=== PATIENT | female | born 1940 | race Hispanic/Latino ===

== ENCOUNTER 2018-12-30 18:06 | Observation (INO) | payer MEDICARE, OTHER ==
[~2018-12-30] VITALS: Ht 162.6 cm; Wt 99.8 kg
[2018-12-30] MEDS ORDERED: VANCOMYCIN 1GM/NS 250 ML 250 ML IV STA (18:07)
--- OUTSIDE RECORDS SUMMARY | 2018-12-30 18:10 | XMS REPORT | CCD ---
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 Depression Active Hypercholesterolemia Active Hypertension Active Sleep apnea Active Medications Medication Instructions Start Date End Date Status pneumococcal 0.5 ml, Route: IM, Drug Form: INJ, 10/07/2010 10/08/2010 Completed 23-valent vaccine ONCALL, Start date: 10/07/10 1:00:00, Duration: 1 doses or times(Same as: Pneumovax 23) Refrigerate pneumococcal 0.5 ml, Route: IM, Drug Form: INJ, 01/26/2010 01/26/2010 Completed 23-valent vaccine ONCE, Start date: 01/26/10 10:30:00, Stop date: 01/26/10 10:30:00(Same as: Pneumovax 23) Refrigerate Immunizations Vaccine Date Status pneumococcal 23-valent vaccine 01/26/2010 Auth (Verified) pneumococcal 23-valent vaccine 10/08/2010 Not Done
--- OUTSIDE RECORDS SUMMARY | 2018-12-30 18:10 | XMS REPORT | CCD ---
Author Author Auto Generated Organization [facility] Outpatient [facility] - [place] Address Unknown Phone Unavailable Care Team Providers Care Hitch Technician Name Role Phone Alexi Pickens Jr [...]
--- OUTSIDE RECORDS SUMMARY | 2018-12-30 18:10 | XMS REPORT | Summary of Care ---
Author Author [facility] Organization [facility] Address Unknown Phone Unavailable Encounter HQ Miriam(MISHA) [id number] Date(s): 12/13/16 - 12/17/16 [facility] [address] [place] [address]- [phone] Discharge Disposition: Home or Self Care Attending Physician: Garcia Howell MD Admitting Physician: Terry Reese DO Vital Signs 1 2 3 Most recent to oldest [Reference Range]: 162.5 cm (12/13/16 8:00 PM) 162.56 cm (12/13/16 9:28 AM) Height 98.5 DegF (12/17/16 12:08 PM) 97.2 DegF (12/17/16 7:33 AM) 97.8 DegF (12/17/16 3:43 AM) Temperature Oral [96.4-99.1 DegF] 127/89 mmHg (12/17/16 12:08 PM) 129/75 mmHg (12/17/16 7:33 AM) 108/64 mmHg (12/17/16 3:43 AM) Blood Pressure [90-140/60-90 mmHg] 18 BRMIN (12/17/16 12:08 PM) 16 BRMIN (12/17/16 8:31 AM) 18 BRMIN (12/17/16 7:33 AM) Respiratory Rate [14-20 BRMIN] 71 bpm (12/17/16 12:08 PM) 72 bpm (12/17/16 7:33 AM) 68 bpm (12/17/16 3:43 AM) Peripheral Pulse Rate [60-100 bpm] 113.6 kg (12/13/16 8:00 PM) 113.636 kg (12/13/16 9:28 AM) Weight 43.02 m2 (12/13/16 8:00 PM) 43 m2 (12/13/16 9:28 AM) Body Mass Index Problem List Condition Effective Dates Status Health Status Informant Anxiety(Confirmed) Active Anxiety(Confirmed) Resolved Asthma(Confirmed) Active CABG - Coronary Active artery bypass graft(Confirmed) Depression(Confirmed Active ) Hypercholesterolemia 12/14/16 Active (Confirmed) Asthma(Confirmed) Resolved Hypertension(Confirm Active ed) Hypertension(Confirm Resolved ed) Sleep Resolved apnea(Confirmed) Sleep Active apnea(Confirmed) Allergies, Adverse Reactions, Alerts Substance Reaction Severity Status NKDA Active Medications Advair Diskus 250 mcg-50 mcg inhalation powder 1 puff, Route: INHALATION, Drug Form: AERO, Dosing Weight 113.6, kg, BID, PRN Wh eezing, Start date: 12/14/16 9:20:00 INTELLIGENCE OFFICER, Duration: 30 day, Stop date: 01/13/17 9:19:00 CDT Start Date: 12/14/16 Stop Date: 12/14/16 Status: Deleted Advair Diskus 250 mcg-50 mcg inhalation powder 1 puff, INHALATION, BID, PRN Wheezing, 0 Refill(s) Start Date: 12/13/16 Status: Ordered albuterol 90 mcg/inh inhalation aerosol 2 puff, Route: INHALATION, Drug Form: AERO/A, Dosing Weight 113.6, kg, Q6H, PRN Wheezing, Start date: 12/14/16 9:20:00 INTELLIGENCE OFFICER, Duration: 30 day, Stop date: 7 9:19:00 CDT Notes: Albuterol 90 microgram/inh 8gm HFAWASTE: Aerosol - Return to Pharmacy [facility] as: Endy Jalloh Start Date: 12/14/16 Stop Date: 12/17/16 Status: Discontinued albuterol 90 mcg/inh inhalation aerosol 2 puff, INHALATION, Q6H, PRN for wheezing, # 9 gm, 0 Refill(s) Start Date: 12/13/16 Status: Ordered aspirin 81 mg, 1 tab, Route: PO, Drug form: CHEWTAB, Daily, Dosing Weight 113.6, kg, Sta rt date: 12/14/16 12:00:00 INTELLIGENCE OFFICER, Duration: 30 day, Stop date: 01/13/17 9:00:00 CD T Notes: Take with food. Start Date: 12/14/16 Stop Date: 12/17/16 Status: Discontinued aspirin 81 mg, PO, Daily, 0 Refill(s) Start Date: 12/13/16 Status: Ordered atropine 0.5 mg, 5 mL, Route: IVP, Drug form: INJ, PRN, Dosing Weight 113.6, kg, PRN Othe r -See Comment, Start date: 12/15/16 13:48:00 INTELLIGENCE OFFICER, Stop date: 01/14/17 14:47:00 CDT, symptomatic bradycardia hr < 40 Start Date: 12/15/16 Stop Date: 12/17/16 Status: Discontinued budesonide-formoterol 160 mcg-4.5 mcg/inh inhalation aerosol with adapter 2 inhalation, Route: INHALATION, Drug Form: AERO/A, BID, Start date: 12/14/16 17 :00:00 INTELLIGENCE OFFICER, Duration: 30 day, Stop date: 01/13/17 9:00:00 CDT Notes: (Same as: Symbicort)WASTE: Aerosol - Return to Pharmacy Start Date: 12/14/16 Stop Date: 12/17/16 Status: Discontinued citalopram 20 mg oral tablet 20 mg=1 tab, PO, Daily, # 30 tab, 0 Refill(s) Start Date: 12/13/16 Status: Ordered Crestor 20 mg, 1 tab, Route: PO, Drug form: TAB, Bedtime, Dosing Weight 113.636, kg, Sta rt date: 12/13/16 21:00:00 INTELLIGENCE OFFICER, Duration: 30 day, Stop date: 01/11/17 21:00:00 C DT Notes: Same as Crestor Start Date: 12/13/16 Stop Date: 12/17/16 Status: Discontinued Crestor 10 mg oral tablet 10 mg=1 tab, PO, Bedtime, # 30 tab, 0 Refill(s) Start Date: 12/13/16 Status: Ordered cyanocobalamin 1,000 microgram, 1 mL, Route: IM, Drug form: INJ, ONCE, Dosing Weight 113.6, kg, Start date: 12/15/16 9:11:00 INTELLIGENCE OFFICER, Stop date: 12/15/16 9:11:00 INTELLIGENCE OFFICER Notes: (Same As: Vitamin B12) Start Date: 12/15/16 Stop Date: 12/15/16 Status: Completed cyanocobalamin 1,000 microgram, 1 mL, Route: IM, Drug form: INJ, ONCE, Dosing Weight 113.6, kg, Start date: 12/14/16 9:19:00 INTELLIGENCE OFFICER, Stop date: 12/14/16 9:19:00 INTELLIGENCE OFFICER Notes: (Same As: Vitamin B12) Start Date: 12/14/16 Stop Date: 12/14/16 Status: Completed cyanocobalamin 250 microgram, 0.5 tab, Route: PO, Drug form: TAB, Daily, Dosing Weight 113.6, k g, Start date: 12/17/16 10:00:00 INTELLIGENCE OFFICER, Duration: 30 day, Stop date: 01/16/17 9:00 :00 CDT Notes: (Same As: Vitamin B12) Start Date: 12/17/16 Stop Date: 12/17/16 Status: Discontinued cyanocobalamin 500 mcg sublingual tablet 500 microgram=1 tab, PO, Daily, # 100 tab, 1 Refill(s) Start Date: 12/17/16 Status: Ordered Diamox 250 mg, 1 tab, Route: PO, Drug form: TAB, Daily, Dosing Weight 113.636, kg, Star t date: 12/13/16 15:00:00 INTELLIGENCE OFFICER, Duration: 30 day, Stop date: 01/12/17 9:00:00 CDT Notes: (Same as: Diamox) Start Date: 12/13/16 Stop Date: 12/16/16 Status: Discontinued influenza virus vaccine, inactivated 0.5 mL, Route: IM, Drug Form: SUSP, Daily, Start date: 12/14/16 9:00:00 INTELLIGENCE OFFICER, Sto p date: 12/14/16 23:00:00 INTELLIGENCE OFFICER Notes: (Same as: Fluzone Quadrivalent, Fluarix Quadrivalent)For 3 years of age a nd older (0.5 mL IM)Shake well before use Start Date: 12/14/16 Stop Date: 12/14/16 Status: Canceled lactulose 10 g/15 mL oral syrup 20 gm=30 mL, PO, BID, # 1,800 mL, 1 Refill(s) Start Date: 12/17/16 Stop Date: 12/18/16 Status: Completed lactulose 10 g/15 mL oral syrup 20 gm, 30 mL, Route: PO, Drug form: SYRP, BID, Dosing Weight 113.636, kg, Start date: 12/13/16 17:00:00 INTELLIGENCE OFFICER, Duration: 30 day, Stop date: 01/12/17 9:00:00 CDT Notes: (Same as:Chronulac) Start Date: 12/13/16 Stop Date: 12/17/16 Status: Discontinued lisinopril 5 mg, 1 tab, Route: PO, Drug form: TAB, Daily, Dosing Weight 113.636, kg, Start date: 12/14/16 9:00:00 INTELLIGENCE OFFICER, Duration: 30 day, Stop date: 01/12/17 9:00:00 CDT Notes: (Same as: Prinivil, Zestril) Start Date: 12/14/16 Stop Date: 12/17/16 Status: Discontinued meloxicam 7.5 mg, 1 tab, Route: PO, Drug form: TAB, Daily, Dosing Weight 113.6, kg, Start date: 12/15/16 9:00:00 INTELLIGENCE OFFICER, Duration: 30 day, Stop date: 01/13/17 9:00:00 CDT Notes: (Same as: Mobic) Start Date: 12/15/16 Stop Date: 12/17/16 Status: Discontinued morphine Sulfate 1 mg, 0.5 mL, Route: IV, Drug form: INJ, ONCE, Dosing Weight 113.6, kg, Start da te: 12/15/16 6:28:00 INTELLIGENCE OFFICER, Stop date: 12/15/16 6:28:00 INTELLIGENCE OFFICER Notes: (Same as:MORPhine Sulfate) Start Date: 12/15/16 Stop Date: 12/15/16 Status: Completed Nitrostat 0.4 mg sublingual tablet 0.4 mg, 1 tab, Route: SL, Drug form: TAB, Q5Min, Dosing Weight 113.6, kg, PRN Ch est Pain, Start date: 12/15/16 13:47:00 INTELLIGENCE OFFICER, Duration: 3 doses or times, Stop da te: Limited # of times Notes: (Same as:Nitroquick, Nitrostat)"Do Not Crush" Sublingual tablet Start Date: 12/15/16 Stop Date: 12/17/16 Status: Discontinued OLANZapine 5 mg, 1 tab, Route: PO, Drug form: TAB, Bedtime, Dosing Weight 113.6, kg, Start date: 12/14/16 21:00:00 INTELLIGENCE OFFICER, Duration: 30 day, Stop date: 01/12/17 21:00:00 CDT Notes: (Same as: ZyPREXA) Start Date: 12/14/16 Stop Date: 12/17/16 Status: Discontinued OLANZapine 5 mg oral tablet 5 mg=1 tab, PO, Bedtime, # 30 tab, 0 Refill(s) Start Date: 12/13/16 Status: Ordered Plavix 75 mg, 1 tab, Route: PO, Drug form: TAB, Daily, Dosing Weight 113.636, kg, Start date: 12/14/16 9:00:00 INTELLIGENCE OFFICER, Duration: 30 day, Stop date: 01/12/17 9:00:00 CDT Notes: (Same As: Plavix) Start Date: 12/14/16 Stop Date: 12/17/16 Status: Discontinued pneumococcal 13-valent vaccine 0.5 mL, Route: IM, Drug Form: INJ, Daily, Start date: 12/14/16 9:00:00 INTELLIGENCE OFFICER, Stop date: 12/14/16 23:00:00 INTELLIGENCE OFFICER Notes: Lightly roll vial (DO NOT SHAKE) before administration. (Same as: Prevna r 13) Start Date: 12/14/16 Stop Date: 12/14/16 Status: Completed riFAXimin 550 mg, 1 tab, Route: PO, Drug form: TAB, Q12H, Dosing Weight 113.6, kg, Start d ate: 12/16/16 21:00:00 INTELLIGENCE OFFICER, Duration: 30 day, Stop date: 01/15/17 9:00:00 CDT Notes: Same as: Xifaxan Start Date: 12/16/16 Stop Date: 12/17/16 Status: Discontinued riFAXimin 550 mg oral tablet 550 mg=1 tab, PO, Q12H, # 20 tab, 0 Refill(s) Start Date: 12/17/16 Status: Ordered Saline Flush 0.9% 10 mL, Route: IVP, Drug Form: INJ, Dosing Weight 113.636, kg, PRN, PRN Line Flus h, Start date: 12/13/16 10:25:00 INTELLIGENCE OFFICER, Duration: 30 day, Stop date: 01/12/17 11:2 4:00 CDT Notes: (Same as: BD Posiflush) Start Date: 12/13/16 Stop Date: 12/17/16 Status: Discontinued Sodium Chloride 0.9% (Bolus) IV 1,000 mL, 1000 ml/hr, Infuse Over: 1 hr, Route: IV, 1,000, Drug form: INJ, ONCE, Priority: STAT, Dosing Weight 113.636 kg, Start date: 12/13/16 10:25:00 INTELLIGENCE OFFICER, Du ration: 1 doses or times, Stop date: 12/13/16 10:25:00 INTELLIGENCE OFFICER Start Date: 12/13/16 Stop Date: 12/13/16 Status: Completed temazepam 15 mg, 1 cap, Route: PO, Drug form: CAP, Bedtime, Dosing Weight 113.636, kg, PRN Sleep, Start date: 12/13/16 23:31:00 INTELLIGENCE OFFICER, Duration: 30 day, Stop date: 01/12/17 23:30:00 CDT Notes: (Same As: Restoril) Start Date: 12/13/16 Stop Date: 12/16/16 Status: Discontinued temazepam 15 mg oral capsule 15 mg=1 cap, PO, Bedtime, PRN Sleep, # 14 tab, 0 Refill(s) Start Date: 12/13/16 Stop Date: 12/17/16 Status: Discontinued tolterodine 4 mg oral capsule, extended release 4 mg=1 cap, PO, Daily, # 30 cap, 1 Refill(s) Start Date: 12/13/16 Stop Date: 12/17/16 Status: Discontinued Zetia 10 mg, 1 tab, Route: PO, Drug form: TAB, Daily, Dosing Weight 113.636, kg, Start date: 12/14/16 9:00:00 INTELLIGENCE OFFICER, Duration: 30 day, Stop date: 01/12/17 9:00:00 CDT Notes: (Same as: Zetia) Start Date: 12/14/16 Stop Date: 12/17/16 Status: Discontinued Results ELECTROLYTES 1 2 3 Most recent to oldest [Reference Range]: 139 mEq/L (12/16/16 10:20 AM) 137 mEq/L (12/15/16 4:05 AM) 139 mEq/L (12/13/16 10:25 AM) Sodium Lvl [135-145 mEq/L] 3.9 mEq/L (12/16/16 10:20 AM) 3.9 mEq/L (12/15/16 4:05 AM) 4.1 mEq/L (12/13/16 10:25 AM) Potassium Lvl [3.5-5.1 mEq/L] 96 mEq/L (12/16/16 10:20 AM) 95 mEq/L (12/15/16 4:05 AM) 92 mEq/L *LOW* (12/13/16 10:25 AM) Chloride Lvl [95-109 mEq/L] 36 mEq/L *HI* (12/16/16 10:20 AM) 38 mEq/L *HI* (12/15/16 4:05 AM) 43 mEq/L 1 *CRIT* (12/13/16 10:25 AM) CO2 [24-32 mEq/L] 10.9 mEq/L (12/16/16 10:20 AM) 7.9 mEq/L *LOW* (12/15/16 4:05 AM) 8.1 mEq/L *LOW* (12/13/16 10:25 AM) AGAP [10.0-20.0 mEq/L] 1Result Comment: Critical Result(s) called to rolando velasquez at 12/13/2016 11:41 by sherry. Read back OK. CHEM PANEL 1 2 3 Most recent to oldest [Reference Range]: 0.46 mg/dL *LOW* (12/16/16 10:20 AM) 0.43 mg/dL *LOW* (12/15/16 4:05 AM) 0.37 mg/dL *LOW* (12/13/16 10:25 AM) Creatinine Lvl [0.50-1.40 mg/dL] 98 mL/min/1.73m2 1 *NA* (12/16/16 10:20 AM) 101 mL/min/1.73m2 2 *NA* (12/15/16 4:05 AM) 106 mL/min/1.73m2 3 *NA* (12/13/16 11:15 AM) eGFR 6 mg/dL *LOW* (12/16/16 10:20 AM) 5 mg/dL *LOW* (12/15/16 4:05 AM) 6 mg/dL *LOW* (12/13/16 10:25 AM) BUN [7-22 mg/dL] 16 (2/20/17 10:25 AM) B/C Ratio [6-25] 116 mg/dL *HI* (12/16/16 10:20 AM) 96 mg/dL (12/15/16 4:05 AM) 94 mg/dL (12/13/16 10:25 AM) Glucose Lvl [70-99 mg/dL] 5.8 g/dL *LOW* (12/13/16 10:25 AM) Total Protein [6.4-8.4 g/dL] 2.1 g/dL *LOW* (12/13/16 10:25 AM) Albumin Lvl [3.5-5.0 g/dL] 3.7 g/dL (12/13/16 10:25 AM) Globulin [2.7-4.2 g/dL] 0.6 *LOW* (12/13/16 10:25 AM) A/G Ratio [0.7-1.6] 8.1 mg/dL *LOW* (12/16/16 10:20 AM) 8.5 mg/dL (12/15/16 4:05 AM) 8.2 mg/dL *LOW* (12/13/16 10:25 AM) Calcium Lvl [8.5-10.5 mg/dL] 1.9 mg/dL (12/13/16 7:53 PM) Magnesium Lvl [1.8-2.4 mg/dL] 10 unit/L (12/13/16 10:25 AM) ALT [0-65 unit/L] 7 unit/L (12/13/16 10:25 AM) AST [0-37 unit/L] 64 unit/L (12/13/16 10:25 AM) Alk Phos [39-136 unit/L] 0.3 mg/dL (12/13/16 10:25 AM) Bili Total [0.2-1.3 mg/dL] 56.0 uMol/L *HI* (12/17/16 6:01 AM) 83.0 uMol/L *HI* (12/16/16 10:20 AM) 87.0 uMol/L *HI* (12/15/16 4:05 AM) Ammonia [<=45.0 uMol/L] 1Result Comment: The eGFR is calculated using the CKD-EPI formula. In most young, healthy individuals the eGFR will be >90 mL/min/1.73m2. The eGFR declines with age. An eGFR of 60-89 may be normal in some populations, particularly the elderly, for whom the CKD-EPI formula has not been extensively validated. Use of the eGFR is not recommended in the following populations: Individuals with unstable creatinine concentrations, including patients and those with serious co-morbid conditions. Patients with extremes in muscle mass or diet. The data above are obtained from the National Kidney Disease Education Program ( NKDEP) which additionally recommends that when the eGFR is used in patients with extremes of body mass index for purposes of drug dosing, the eGFR should be mul tiplied by the estimated BMI. 2Result Comment: The eGFR is calculated using the CKD-EPI formula. In most young, healthy individuals the eGFR will be >90 mL/min/1.73m2. The eGFR declines with age. An eGFR of 60-89 may be normal in some populations, particularly the elderly, for whom the CKD-EPI formula has not been extensively validated. Use of the eGFR is not recommended in the following populations: Individuals with unstable creatinine concentrations, including patients and those with serious co-morbid conditions. Patients with extremes in muscle mass or diet. The data above are obtained from the National Kidney Disease Education Program ( NKDEP) which additionally recommends that when the eGFR is used in patients with extremes of body mass index for purposes of drug dosing, the eGFR should be mul tiplied by the estimated BMI. 3Result Comment: The eGFR is calculated using the CKD-EPI formula. In most young, healthy individuals the eGFR will be >90 mL/min/1.73m2. The eGFR declines with age. An eGFR of 60-89 may be normal in some populations, particularly the elderly, for whom the CKD-EPI formula has not been extensively validated. Use of the eGFR is not recommended in the following populations: Individuals with unstable creatinine concentrations, including patients and those with serious co-morbid conditions. Patients with extremes in muscle mass or diet. The data above are obtained from the National Kidney Disease Education Program ( NKDEP) which additionally recommends that when the eGFR is used in patients with extremes of body mass index for purposes of drug dosing, the eGFR should be mul tiplied by the estimated BMI. CARDIAC ENZYMES 1 2 3 Most recent to oldest [Reference Range]: 26 unit/L (12/13/16 11:15 AM) Total CK [12-191 unit/L] 0.03 ng/mL (12/13/16 11:15 AM) Troponin-I [0.00-0.40 ng/mL] 191 pg/mL *HI* (12/13/16 11:15 AM) BNP [<=100 pg/mL] LIPIDS 1 2 3 Most recent to oldest [Reference Range]: 2.14 *LOW* (12/14/16 3:22 AM) CHD Risk [3.90-5.80] 124 mg/dL (12/14/16 3:22 AM) Chol [<=199 mg/dL] 75 mg/dL (12/14/16 3:22 AM) Trig [<=149 mg/dL] 58 mg/dL *LOW* (12/14/16 3:22 AM) HDL [>=61 mg/dL] 51 mg/dL (12/14/16 3:22 AM) LDL (Calculated) [<=99 mg/dL] 15 *NA* (12/14/16 3:22 AM) VLDL ANEMIA STUDY 1 2 3 Most recent to oldest [Reference Range]: 189 pg/mL *LOW* (12/13/16 7:53 PM) Vitamin B12 Lvl [254-1320 pg/mL] URINE AND STOOL 1 2 3 Most recent to oldest [Reference Range]: Clear (12/13/16 10:20 AM) UA Turbidity [Clear] Ltyellow *NA* (12/13/16 10:20 AM) UA Color 7.0 (12/13/16 10:20 AM) UA pH [5.0-8.0] 1.004 (12/13/16 10:20 AM) UA Spec Grav [<=1.030] Negative mg/dL *NA* (12/13/16 10:20 AM) UA Glucose [Negative mg/dL] Negative (12/13/16 10:20 AM) UA Blood [Negative] Negative mg/dL *NA* (12/13/16 10:20 AM) UA Ketones [Negative mg/dL] Negative mg/dL (12/13/16 10:20 AM) UA Protein [Negative mg/dL] <=1.0 mg/dL *NA* (12/13/16 10:20 AM) UA Urobilinogen [0.1-1.0 mg/dL] Negative *NA* (12/13/16 10:20 AM) UA Bili [Negative] Negative (12/13/16 10:20 AM) UA Leuk Est [Negative] Negative (12/13/16 10:20 AM) UA Nitrite [Negative] <1 /HPF (12/13/16 10:20 AM) UA WBC [0-5 /HPF] Occasional /HPF *NA* (12/13/16 10:20 AM) UA Bacteria [None Seen /HPF] None Seen *NA* (12/13/16 10:20 AM) UA Sq Epi IMMUNOLOGY 1 2 3 Most recent to oldest [Reference Range]: Negative *NA* (12/13/16 7:53 PM) Hep Bs Ag [Negative] Negative *NA* (12/13/16 7:53 PM) Hep B Core IgM [Negative] Negative *NA* (12/13/16 7:53 PM) Hep A IgM [Negative] Negative *NA* (12/13/16 7:53 PM) Hep C Ab HEMATOLOGY 1 2 3 Most recent to oldest [Reference Range]: 6.8 K/CMM (12/13/16 7:53 PM) WBC [3.7-10.4 K/CMM] 4.18 M/CMM *LOW* (12/13/16 7:53 PM) RBC [4.20-5.40 M/CMM] 12.7 g/dL (12/13/16 7:53 PM) Hgb [12.0-16.0 g/dL] 40.0 % (12/13/16 7:53 PM) Hct [36.0-48.0 %] 95.5 fL (12/13/16 7:53 PM) MCV [80.0-98.0 fL] 30.3 pg (12/13/16 7:53 PM) MCH [27.0-31.0 pg] 31.7 g/dL *LOW* (12/13/16 7:53 PM) MCHC [32.0-36.0 g/dL] 14.4 % (12/13/16 7:53 PM) RDW [11.5-14.5 %] 315 K/CMM (12/13/16 7:53 PM) Platelet [133-450 K/CMM] 7.0 fL *LOW* (12/13/16 7:53 PM) MPV [7.4-10.4 fL] 72.7 % (12/13/16 7:53 PM) Segs [45.0-75.0 %] 16.7 % *LOW* (12/13/16 7:53 PM) Lymphocytes [20.0-40.0 %] 8.6 % (12/13/16 7:53 PM) Monocytes [2.0-12.0 %] 1.4 % (12/13/16 7:53 PM) Eosinophils [0.0-4.0 %] 0.6 % (12/13/16 7:53 PM) Basophils [0.0-1.0 %] 5.0 K/CMM (12/13/16 7:53 PM) Segs-Bands # [1.5-8.1 K/CMM] 1.1 K/CMM (12/13/16 7:53 PM) Lymphocytes # [1.0-5.5 K/CMM] 0.6 K/CMM (12/13/16 7:53 PM) Monocytes # [0.0-0.8 K/CMM] 0.1 K/CMM (12/13/16 7:53 PM) Eosinophils # [0.0-0.5 K/CMM] Immunizations Given and Recorded Vaccine Date Status Refusal Reason pneumococcal 23-valent vaccine 01/26/10 Given Not Given Vaccine Date Status Refusal Reason influenza virus vaccine, inactivated 12/14/16 Not Given Patient Refuses pneumococcal 13-valent vaccine 12/14/16 Not Given Patient Refuses Procedures Procedure Date Related Diagnosis Body Site CABG - Coronary artery bypass graft Social History Social History Type Response Smoking Status Never smoker; Previous treatment: None; Ready to change: No; Concerns about tobacco use in household: No; Exposure to Tobacco Smoke None; Cigarette Smoking Last 365 Days No; Reg Smoking Cessation Counseling No Assessment and Plan No data available for this section
--- OUTSIDE RECORDS SUMMARY | 2018-12-30 18:10 | XMS REPORT | CCD ---
Author Author Auto Generated Organization [facility] Out[facility] - [place] Address Unknown Phone Unavailable Care Team Providers Care Forestry Farm Laborer Name Role Phone Alexi Pickens Jr CP [...] date: 10/07/10 1:00:00, Duration: 1 doses or times pneumococcal 0.5 ml, Route: IM, Drug Form: INJ, 01/26/2010 01/26/2010 Completed 23-valent vaccine ONCE, Start date: 01/26/10 10:30:00, Stop date: 01/26/10 10:30:00 Immunizations Vaccine Date Status pneumococcal 23-valent vaccine 01/26/2010 Auth (Verified) pneumococcal 23-valent vaccine 10/08/2010 Not Done
--- OUTSIDE RECORDS SUMMARY | 2018-12-30 18:10 | XMS REPORT | CCD ---
Author Author Auto Generated Organization [facility] Outpatient Imaging - [place] Address Unknown Phone Unavailable Care Team Providers Care Roster Clerk Name Role Phone Nelia NeffAlexi CP Allergies, Adverse Reactions, Alerts Substance Reaction [...]
--- OUTSIDE RECORDS SUMMARY | 2018-12-30 18:10 | XMS REPORT | Continuity of Care Document ---
Author Author [facility] Interface Address Unknown Phone Unavailable Problems Problem Status Onset Date Classification Date Reported Comments Source AMS Active 09/17/2018 [facility] ACUTE HYPERCAPNIC RESPIRATORY FAILURE Active 09/17/2018 [facility] Hypercholesterolemia Active 12/14/2016 Problem 12/20/2016 [facility], [facility] HEPATIC ENCEPHALOPATHY Active 12/13/2016 [facility] HEPATIC ENCEPHALOPATHY Active 12/13/2016 [facility] V76.12 - SCREEN MAMMOGRA Active 09/04/2013 [facility] Anxiety Active Problem 05/23/2013 [facility] Asthma Active Problem 05/23/2013 [facility] CABG - Coronary artery bypass graft Active Problem 05/23/2013 [facility] Depression Active Problem 05/23/2013 [facility] Hypercholesterolemia Active Problem 05/23/2013 [facility] Hypertension Active Problem 05/23/2013 [facility] Sleep apnea Active Problem 05/23/2013 [facility] Anxiety Active Problem 12/20/2016 [facility] Asthma Active Problem 12/20/2016 [facility] CABG - Coronary artery bypass graft Active Problem 12/20/2016 [facility] Depression Active Problem 12/20/2016 [facility] Hypertension Active Problem 12/20/2016 [facility] Sleep apnea Resolved Problem 12/20/2016 [facility] HEPATIC FAILURE, UNSPECIFIED WITHOUT COM Active [facility] ACUTE RESPIRATORY FAILURE WITH HYPERCAPN Active [facility] Medications Medication Details Route Status Patient Instructions Ordering Provider Order Date Source riFAXimin 550 mg oral tablet 550 mg=1 tab, PO, Q12H, # 20 tab, 0 Refill(s) Active 12/17/2016 [facility] Lactulose 667 MG/ML Oral Solution 20 gm=30 mL, PO, BID, # 1,800 mL, 1 Refill(s) No Longer Active 12/17/2016 [facility] cyanocobalamin 500 mcg sublingual tablet 500 microgram=1 tab, PO, Daily, # 100 tab, 1 Refill(s) Active 12/17/2016 [facility] Vitamin B 12 250 microgram, 0.5 tab, Route: PO, Drug form: TAB, Daily, Dosing Weight 113.6, kg, Start date: 12/17/16 10:00:00 DIRECTOR HOUSEKEEPING, Duration: 30 day, Stop date: 01/16/17 9:00:00 CDTNotes: (Same As: Vitamin B12) Inactive 12/17/2016 [facility] rifaximin 550 mg, 1 tab, Route: PO, Drug form: TAB, Q12H, Dosing Weight 113.6, kg, Start date: 12/16/16 21:00:00 DIRECTOR HOUSEKEEPING, Duration: 30 day, Stop date: 01/15/17 9:00:00 CDTNotes: Same as: Xifaxan No Longer Active 12/17/2016 [facility] Atropine 0.5 mg, 5 mL, Route: IVP, Drug form: INJ, PRN, Dosing Weight 113.6, kg, PRN Other -See Comment, Start date: 12/15/16 13:48:00 DIRECTOR HOUSEKEEPING, Stop date: 01/14/17 14:47:00 CDT, symptomatic bradycardia hr No Longer Active 12/15/2016 [facility] Nitroglycerin 0.4 MG Sublingual Tablet [Nitrostat] 0.4 mg, 1 tab, Route: SL, Drug form: TAB, Q5Min, Dosing Weight 113.6, kg, PRN Chest Pain, Start date: 12/15/16 13:47:00 DIRECTOR HOUSEKEEPING, Duration: 3 doses or times, Stop date: Limited # of timesNotes: (Same as:Nitroquick, Nitrostat) "Do Not Crush" Sublingual tablet No Longer Active 12/15/2016 [facility] Vitamin B 12 1,000 microgram, 1 mL, Route: IM, Drug form: INJ, ONCE, Dosing Weight 113.6, kg, Start date: 12/15/16 9:11:00 DIRECTOR HOUSEKEEPING, Stop date: 12/15/16 9:11:00 CSTNotes: (Same As: Vitamin B12) Inactive 12/15/2016 [facility] meloxicam 7.5 mg, 1 tab, Route: PO, Drug form: TAB, Daily, Dosing Weight 113.6, kg, Start date: 12/15/16 9:00:00 DIRECTOR HOUSEKEEPING, Duration: 30 day, Stop date: 01/13/17 9:00:00 CDTNotes: (Same as: Mobic) No Longer Active 12/15/2016 [facility] Morphine 1 mg, 0.5 mL, Route: IV, Drug form: INJ, ONCE, Dosing Weight 113.6, kg, Start date: 12/15/16 6:28:00 DIRECTOR HOUSEKEEPING, Stop date: 12/15/16 6:28:00 CSTNotes: (Same as:MORPhine Sulfate) Inactive 12/15/2016 [facility] olanzapine 5 mg, 1 tab, Route: PO, Drug form: TAB, Bedtime, Dosing Weight 113.6, kg, Start date: 12/14/16 21:00:00 DIRECTOR HOUSEKEEPING, Duration: 30 day, Stop date: 01/12/17 21:00:00 CDTNotes: (Same as: ZyPREXA) No Longer Active 12/15/2016 [facility] budesonide-formoterol 160 mcg-4.5 mcg/inh inhalation aerosol with adapter 2 inhalation, Route: INHALATION, Drug Form: AERO/A, BID, Start date: 12/14/16 17:00:00 DIRECTOR HOUSEKEEPING, Duration: 30 day, Stop date: 01/13/17 9:00:00 CDTNotes: (Same as: Symbicort) WASTE: Aerosol - Return to Pharmacy No Longer Active 12/14/2016 [facility] Aspirin 81 mg, 1 tab, Route: PO, Drug form: CHEWTAB, Daily, Dosing Weight 113.6, kg, Start date: 12/14/16 12:00:00 DIRECTOR HOUSEKEEPING, Duration: 30 day, Stop date: 01/13/17 9:00:00 CDTNotes: Take with food. No Longer Active 12/14/2016 [facility] Advair Diskus 250 mcg-50 mcg inhalation powder 1 puff, Route: INHALATION, Drug Form: AERO, Dosing Weight 113.6, kg, BID, PRN Wheezing, Start date: 12/14/16 9:20:00 DIRECTOR HOUSEKEEPING, Duration: 30 day, Stop date: 01/13/17 9:19:00 CDT Inactive 12/14/2016 [facility] 200 ACTUAT Albuterol 0.09 MG/ACTUAT Metered Dose Inhaler 2 puff, Route: INHALATION, Drug Form: AERO/A, Dosing Weight 113.6, kg, Q6H, PRN Wheezing, Start date: 12/14/16 9:20:00 DIRECTOR HOUSEKEEPING, Duration: 30 day, Stop date: 01/13/17 9:19:00 CDTNotes: Albuterol 90 microgram/inh 8gm HFA WASTE: Aerosol - Return to Pharmacy Same as: Ventolin, Proventil No Longer Active 12/14/2016 [facility] Vitamin B 12 1,000 microgram, 1 mL, Route: IM, Drug form: INJ, ONCE, Dosing Weight 113.6, kg, Start date: 12/14/16 9:19:00 DIRECTOR HOUSEKEEPING, Stop date: 12/14/16 9:19:00 CSTNotes: (Same As: Vitamin B12) Inactive 12/14/2016 [facility] Zetia 10 mg, 1 tab, Route: PO, Drug form: TAB, Daily, Dosing Weight 113.636, kg, Start date: 12/14/16 9:00:00 DIRECTOR HOUSEKEEPING, Duration: 30 day, Stop date: 01/12/17 9:00:00 CDTNotes: (Same as: Zetia) No Longer Active 12/14/2016 [facility] Lisinopril 5 mg, 1 tab, Route: PO, Drug form: TAB, Daily, Dosing Weight 113.636, kg, Start date: 12/14/16 9:00:00 DIRECTOR HOUSEKEEPING, Duration: 30 day, Stop date: 01/12/17 9:00:00 CDTNotes: (Same as: Prinivil, Zestril) No Longer Active 12/14/2016 [facility] Streptococcus pneumoniae serotype 1 capsular antigen diphtheria [id number] protein conjugate vaccine / Streptococcus pneumoniae serotype 14 capsular antigen diphtheria [id number] protein conjugate vaccine / Streptococcus pneumoniae serotype 18C capsular antigen d 0.5 mL, Route: IM, Drug Form: INJ, Daily, Start date: 12/14/16 9:00:00 DIRECTOR HOUSEKEEPING, Stop date: 12/14/16 23:00:00 CSTNotes: Lightly roll vial (DO NOT SHAKE) before administration. (Same as: Prevnar 13) Inactive 12/14/2016 [facility] influenza virus vaccine, inactivated 0.5 mL, Route: IM, Drug Form: SUSP, Daily, Start date: 12/14/16 9:00:00 DIRECTOR HOUSEKEEPING, Stop date: 12/14/16 23:00:00 CSTNotes: (Same as: Fluzone Quadrivalent, Fluarix Quadrivalent) For 3 years of age and older (0.5 mL IM) Shake well before use Inactive 12/14/2016 [facility] Plavix 75 mg, 1 tab, Route: PO, Drug form: TAB, Daily, Dosing Weight 113.636, kg, Start date: 12/14/16 9:00:00 DIRECTOR HOUSEKEEPING, Duration: 30 day, Stop date: 01/12/17 9:00:00 CDTNotes: (Same As: Plavix) No Longer Active 12/14/2016 [facility] Temazepam 15 mg, 1 cap, Route: PO, Drug form: CAP, Bedtime, Dosing Weight 113.636, kg, PRN Sleep, Start date: 12/13/16 23:31:00 DIRECTOR HOUSEKEEPING, Duration: 30 day, Stop date: 01/12/17 23:30:00 CDTNotes: (Same As: Restoril) No Longer Active 12/14/2016 [facility] Advair Diskus 250 mcg-50 mcg inhalation powder 1 puff, INHALATION, BID, PRN Wheezing, 0 Refill(s) Active 12/14/2016 [facility] Rosuvastatin calcium 10 MG Oral Tablet [Crestor] 10 mg=1 tab, PO, Bedtime, # 30 tab, 0 Refill(s) Active 12/14/2016 [facility] 200 ACTUAT Albuterol 0.09 MG/ACTUAT Metered Dose Inhaler 2 puff, INHALATION, Q6H, PRN for wheezing, # 9 gm, 0 Refill(s) Active 12/14/2016 [facility] Aspirin 81 mg, PO, Daily, 0 Refill(s) Active 12/14/2016 [facility] temazepam 15 mg oral capsule 15 mg=1 cap, PO, Bedtime, PRN Sleep, # 14 tab, 0 Refill(s) No Longer Active 12/14/2016 [facility] OLANZapine 5 mg oral tablet 5 mg=1 tab, PO, Bedtime, # 30 tab, 0 Refill(s) Active 12/14/2016 [facility] citalopram 20 mg oral tablet 20 mg=1 tab, PO, Daily, # 30 tab, 0 Refill(s) Active 12/14/2016 [facility] tolterodine 4 mg oral capsule, extended release 4 mg=1 cap, PO, Daily, # 30 cap, 1 Refill(s) No Longer Active 12/14/2016 [facility] Crestor 20 mg, 1 tab, Route: PO, Drug form: TAB, Bedtime, Dosing Weight 113.636, kg, Start date: 12/13/16 21:00:00 DIRECTOR HOUSEKEEPING, Duration: 30 day, Stop date: 01/11/17 21:00:00 CDTNotes: Same as Crestor No Longer Active 12/14/2016 [facility] Lactulose 667 MG/ML Oral Solution 20 gm, 30 mL, Route: PO, Drug form: SYRP, BID, Dosing Weight 113.636, kg, Start date: 12/13/16 17:00:00 DIRECTOR HOUSEKEEPING, Duration: 30 day, Stop date: 01/12/17 9:00:00 CDTNotes: (Same as:Chronulac) No Longer Active 12/13/2016 [facility] Acetazolamide 250 mg, 1 tab, Route: PO, Drug form: TAB, Daily, Dosing Weight 113.636, kg, Start date: 12/13/16 15:00:00 DIRECTOR HOUSEKEEPING, Duration: 30 day, Stop date: 01/12/17 9:00:00 CDTNotes: (Same as: Diamox) No Longer Active 12/13/2016 [facility] Saline Flush 0.9% 10 mL, Route: IVP, Drug Form: INJ, Dosing Weight 113.636, kg, PRN, PRN Line Flush, Start date: 12/13/16 10:25:00 DIRECTOR HOUSEKEEPING, Duration: 30 day, Stop date: 01/12/17 11:24:00 CDTNotes: (Same as: BD Posiflush) No Longer Active 12/13/2016 [facility] Sodium Chloride 0.154 MEQ/ML Injectable Solution 1,000 mL, 1000 ml/hr, Infuse Over: 1 hr, Route: IV, 1,000, Drug form: INJ, ONCE, Priority: STAT, Dosing Weight 113.636 kg, Start date: 12/13/16 10:25:00 DIRECTOR HOUSEKEEPING, Duration: 1 doses or times, Stop date: 12/13/16 10:25:00 DIRECTOR HOUSEKEEPING Inactive 12/13/2016 [facility] pneumococcal 23-valent vaccine 0.5 ml, Route: IM, Drug Form: INJ, ONCALL, Start date: 10/07/10 1:00:00, Duration: 1 doses or times(Same as: Pneumovax 23) Refrigerate No Longer Active SYSTEM 10/07/2010 [facility] pneumococcal 23-valent vaccine 0.5 ml, Route: IM, Drug Form: INJ, ONCE, Start date: 01/26/10 10:30:00, Stop date: 01/26/10 10:30:00(Same as: Pneumovax 23) Refrigerate Inactive SYSTEM 01/26/2010 [facility] Allergies, Adverse Reactions, Alerts Substance Category Reaction Severity Reaction type Status Date Reported Comments Source Immunizations Immunization Date Given Site Status Last Updated Comments Source pneumococcal 13-valent vaccine 12/14/2016 Not Given [facility] influenza virus vaccine, inactivated 12/14/2016 Not Given [facility] pneumococcal 23-valent vaccine 10/08/2010 Not Given [facility] pneumococcal 23-valent vaccine 01/26/2010 fabian Johnson [facility] pneumococcal 23-valent vaccine 01/26/2010 Right deltoid completed Alex [facility] Results Order Name Results Value Reference Range Date Interpretation Comments Source Chest wo contrast CT Chest wo contrast CT EXAM: CT chest HISTORY: Hypoxemia COMPARISON: Chest radiograph September 24, 2018 TECHNIQUE: Axial images of the chest with sagittal and coronal reformats. No contrast. DLP: 302 CT imaging performed at this location utilizes radiation dose optimization techniques which include one or more of the following: -Automated exposure control -Adjustment of the mA and/or kV according to patient size -Use of iterative reconstruction technique FINDINGS: LUNGS: Respiratory motion limits evaluation. The lungs are hyperinflated. Minimal centrilobular groundglass opacities right lower lobe. Calcified granuloma left upper lobe. Focal consolidation left lower lobe. Dependent atelectasis in the lung bases. MEDIASTINUM: Few small lymph nodes are nonspecific. 1.5 cm nodule left thyroid lobe. Coronary artery bypass. PLEURA: No effusion. BONES: Scoliosis. IMPRESSION: 1. Minimal airspace disease right lower lobe may reflect a pneumonitis. Dependent atelectasis in the lung bases. Consolidation left lower lobe may reflect atelectasis or pneumonia. 2. COPD. 3. 1.5 cm nodule left thyroid lobe. Thyroid ultrasound can further evaluate. SL: [id number] 09/24/2018 - - Read by: Caleb Rangel MD Dictated Date/time: 09/25/18 12:04 Electronically Signed by: Caleb Rangel MD 09/25/18 12:16 FINAL REPORT [facility] Chest 1view DX Chest 1view DX Study: Chest 1view DX Clinical Indication: - Acute resp failure Comparison: Chest x-ray from 09/17/2018 FINDINGS: Median sternotomy wires are noted. Cardiac silhouette is mildly prominent. Mild bibasilar atelectasis is seen. Calcified granuloma in the left upper lobe is stable. There is no pleural effusion or pneumothorax. Osseous structures are stable. IMPRESSION: Mild bibasilar atelectasis. SL: [id number] 09/24/2018 - - Read by: Joel Mijares MD Dictated Date/time: 09/24/18 12:18 Electronically Signed by: Joel Mijares MD 09/24/18 12:19 FINAL REPORT [facility] Chest 1view DX Chest 1view DX Patient Name: IRVIN QUINN : 1940; Age: 78 years y/o Female MR: [id number] Study: Chest 1view DX 09/17/2018 10:45 AM DIRECTOR HOUSEKEEPING Ordering Physician: Cayla Tse MD Comparison: Chest radiograph 12/13/2016 Clinical Indication: Altered mental status Findings: The patient is rotated to the left. Hazy airspace opacities throughout the lungs, right greater than left. Small bilateral pleural effusions. No pneumothorax. The cardiac silhouette is enlarged. Atherosclerotic calcifications of the aortic arch. Stable sternotomy wires. No acute osseous abnormalities. IMPRESSION: Mild pulmonary edema with small bilateral pleural effusions. SL: [id number] 09/17/2018 - - Read by: Charli Simms Dictated Date/time: 09/17/18 12:07 Electronically Signed by: Charli Simms 09/17/18 12:09 FINAL REPORT [facility] Brain wo contrast CT Brain wo contrast CT Patient Name: IRVIN QUINN : 1940; Age: 78 years Female MR: [id number] Study: Brain wo contrast CT 09/17/2018 10:45 AM DIRECTOR HOUSEKEEPING Clinical Indication: - AMS. Arrived by ems from home with confusion for 2 days. pt with hx of copd on home O2 and was without oxygen for 2 days. arousable to verbal, disoriented to time. COMPARISON: December 13, 2016 TECHNIQUE: CT images were obtained from the foramen magnum to the vertex without the use of intravenous contrast on a multidetector CT. Coronal and sagittal reconstructions were obtained. Motion artifact limits detail. CT imaging performed at this location utilizes radiation dose optimization techniques which include one or more of the following: -Automated exposure control -Adjustment of the mA and/or kV according to patient size -Use of iterative reconstruction technique CT Radiation Dose DLP 1657 mGy-cm FINDINGS: BRAIN PARENCHYMA: There is generalized brain parenchymal atrophy related to the patient's age. Nonspecific periventricular white matter disease changes are noted. Atherosclerotic calcifications are present within the carotid siphons and distal vertebral arteries. There are no focal mass lesions on this noncontrast head CT. There is no mass effect, midline shift or edema. There are no intra-axial or extra-axial fluid collections. There is no intraventricular or intraparenchymal hemorrhage. There is no noncontrast CT evidence of a subacute stroke. Chronic right thalamic lacunar infarction. The pineal, sellar, brainstem, cerebellum and skull base regions appear normal. VENTRICLES: The lateral ventricles, third and fourth ventricles appear normal. The basilar cisterns are normal. ORBITS, MASTOIDS AND PARANASAL SINUSES: The visualized orbits are normal. The visualized paranasal sinuses are normal. The mastoid air cells are clear. SKULL: There are no calvarial abnormalities seen. If there is further concern for intracranial pathology or acute stroke, MRI of the brain may be performed for complete assessment. IMPRESSION: Chronic age-related and small vessel ischemic changes without mass, hemorrhage or subacute stroke. SL: [id number] 09/17/2018 - - Read by: Javan Denny MD Dictated Date/time: 09/17/18 12:15 Electronically Signed by: Javan Denny MD 09/17/18 12:20 FINAL REPORT [facility] CHEM PANEL Ammonia 56.0 umol/L <=45.0 uMol/L 12/17/2016 [facility] CHEM PANEL Ammonia 83.0 umol/L <=45.0 uMol/L 12/16/2016 [facility] CHEM PANEL eGFR 98 mL/min/1.73m2 12/16/2016 Result Comment: The eGFR is calculated using the [...] from the National Kidney Disease Education Program (NKDEP) which additionally recommends that when the eGFR is used in patients with extremes of body mass index for purposes of drug dosing, the eGFR should be multiplied by the estimated BMI. [facility] CHEM PANEL AGAP 10.9 meq/L 10.0 - 20.0 12/16/2016 [facility] CHEM PANEL Potassium Lvl 3.9 meq/L 3.5 - 5.1 12/16/2016 [facility] CHEM PANEL CO2 36 meq/L 24 - 32 12/16/2016 [facility] CHEM PANEL Sodium Lvl 139 meq/L 135 - 145 12/16/2016 [facility] CHEM PANEL Chloride Lvl 96 meq/L 95 - 109 12/16/2016 [facility] CHEM PANEL Calcium Lvl 8.1 mg/dL 8.5 - 10.5 12/16/2016 [facility] CHEM PANEL Glucose Lvl 116 mg/dL 70 - 99 12/16/2016 [facility] CHEM [facility] BUN 6 mg/dL 7 - 22 12/16/2016 [facility] CHEM [facility] Creatinine Lvl 0.46 mg/dL 0.50 - 1.40 12/16/2016 [facility] Abdomen complete US Abdomen complete US Abdomen complete US TECHNIQUE: Grayscale and color Doppler images of the abdomen were performed with a curvilinear transducer. Static images are submitted for review. CLINICAL HX: Abnormal Lab tests- LFT; COMPARISON: None FINDINGS: LIVER: There is diffuse heterogeneous increase in echogenicity of the liver suggestive of fatty infiltration and/or nonspecific hepatocellular disease. No focal hepatic lesion is visualized. GALL BLADDER AND BILE DUCTS: There is nonvisualization of the gallbladder suggesting previous cholecystectomy. CBD measures 4 mm. PANCREAS: Pancreas is largely obscured by bowel gas. Visualized portion of the pancreas is unremarkable. SPLEEN: Spleen is normal in size. KIDNEYS: The kidneys are comparable in size and reveal no gross masses or any evidence for hydronephrosis. Maximal sagittal diameter of the right kidney is 9.6 cm and the left kidney is and 10.6 cm. VASCULAR: Midline structures are largely obscured due to bowel gas. Visualized portion of the aorta and IVC are unremarkable. ASCITES: No free fluid is present in the upper abdomen. No significant effusion is noted on either side. IMPRESSION: Limited evaluation due to patient's body habitus and bowel gas. Nonvisualization of gallbladder suggesting previous cholecystectomy. Correlation with patient's surgical history is recommended. There is diffuse heterogeneous increase in echogenicity of the liver suggestive of fatty infiltration and/or nonspecific hepatocellular disease. No other significant sonographic abnormality is noted in the abdomen. SL: [id number] 12/16/2016 - - Read by: Pradip Geiger MD Dictated Date/time: 12/16/16 16:35 Electronically Signed by: Pradip Geiger MD 12/16/16 16:40 FINAL REPORT [facility] CHEM PANEL Ammonia 87.0 umol/L <=45.0 uMol/L 12/15/2016 [facility] ELECTROLYTES CO2 38 meq/L 24 - 32 12/15/2016 [facility] ELECTROLYTES eGFR 101 mL/min/1.73m2 12/15/2016 Result Comment: The eGFR is calculated using the [...] from the National Kidney Disease Education Program (NKDEP) which additionally recommends that when the eGFR is used in patients with extremes of body mass index for purposes of drug dosing, the eGFR should be multiplied by the estimated BMI. [facility] ELECTROLYTES Calcium Lvl 8.5 mg/dL 8.5 - 10.5 12/15/2016 [facility] ELECTROLYTES AGAP 7.9 meq/L 10.0 - 20.0 12/15/2016 [facility] ELECTROLYTES BUN 5 mg/dL 7 - 12/15/2016 [facility] ELECTROLYTES Potassium Lvl 3.9 meq/L 3.5 - 5.1 12/15/2016 [facility] ELECTROLYTES Chloride Lvl 95 meq/L 95 - 109 12/15/2016 [facility] ELECTROLYTES Glucose Lvl 96 mg/dL 70 - 99 12/15/2016 [facility] ELECTROLYTES Creatinine Lvl 0.43 mg/dL 0.50 - 1.40 12/15/2016 [facility] ELECTROLYTES Sodium Lvl 137 meq/L 135 - 145 12/15/2016 [facility] LIPIDS VLDL 15 12/14/2016 [facility] LIPIDS Trig 75 mg/dL <=149 mg/dL 12/14/2016 [facility] LIPIDS Chol 124 mg/dL <=199 mg/dL 12/14/2016 [facility] LIPIDS HDL 58 mg/dL >=61 mg/dL 12/14/2016 [facility] LIPIDS LDL (Calculated) 51 mg/dL <=99 mg/dL 12/14/2016 [facility] LIPIDS CHD Risk 2.14 3.90 - 5.80 12/14/2016 [facility] ANEMIA STUDY Vitamin B12 Lvl 189 pg/mL 254 - 1320 12/14/2016 [facility] CHEM PANEL Magnesium Lvl 1.9 mg/dL 1.8 - 2.4 12/14/2016 [facility] HEMATOLOGY MPV 7.0 fL 7.4 - 10.4 12/14/2016 [facility] HEMATOLOGY Platelet 315 K/CMM 133 - 450 12/14/2016 [facility] MCHC 31.7 g/dL 32.0 - 36.0 12/14/2016 [facility] HEMATOLOGY Hct 40.0 % 36.0 - 48.0 12/14/2016 [facility] HEMATOLOGY RDW 14.4 % 11.5 - 14.5 12/14/2016 [facility] HEMATOLOGY RBC 4.18 M/CMM 4.20 - 5.40 12/14/2016 [facility] MCH 30.3 pg 27.0 - 31.0 12/14/2016 [facility] HEMATOLOGY MCV 95.5 fL 80.0 - 98.0 12/14/2016 [facility] HEMATOLOGY Hgb 12.7 g/dL 12.0 - 16.0 12/14/2016 [facility] HEMATOLOGY WBC 6.8 K/CMM 3.7 - 10.4 12/14/2016 [facility] HEMATOLOGY Eosinophils # 0.1 K/CMM 0.0 - 0.5 12/14/2016 [facility] HEMATOLOGY Monocytes # 0.6 K/CMM 0.0 - 0.8 12/14/2016 [facility] HEMATOLOGY Lymphocytes # 1.1 K/CMM 1.0 - 5.5 12/14/2016 [facility] HEMATOLOGY Basophils 0.6 % 0.0 - 1.0 12/14/2016 [facility] HEMATOLOGY Eosinophils 1.4 % 0.0 - 4.0 12/14/2016 [facility] HEMATOLOGY Monocytes 8.6 % 2.0 - 12.0 12/14/2016 [facility] HEMATOLOGY Lymphocytes 16.7 % 20.0 - 40.0 12/14/2016 [facility] HEMATOLOGY Segs 72.7 % 45.0 - 75.0 12/14/2016 [facility] HEMATOLOGY Segs-Bands # 5.0 K/CMM 1.5 - 8.1 12/14/2016 [facility] Hep A IgM Negative *NA* (12/13/16 7:53 PM) Negative 12/14/2016 [facility] Hep C Ab Negative *NA* (12/13/16 7:53 PM) 12/14/2016 [facility] Hep Bs Ag Negative *NA* (12/13/16 7:53 PM) Negative 12/14/2016 [facility] Hep B Core IgM Negative *NA* (12/13/16 7:53 PM) Negative 12/14/2016 [facility] CARDIAC ENZYMES BNP 191 pg/mL <=100 pg/mL 12/13/2016 [facility] CARDIAC ENZYMES Total CK 26 unit/L 12 - 191 12/13/2016 [facility] CARDIAC ENZYMES Troponin-I 0.03 ng/mL 0.00 - 0.40 12/13/2016 [facility] CHEM PANEL eGFR 106 mL/min/1.73m2 12/13/2016 Result Comment: The eGFR is calculated using the [...] from the National Kidney Disease Education Program (NKDEP) which additionally recommends that when the eGFR is used in patients with extremes of body mass index for purposes of drug dosing, the eGFR should be multiplied by the estimated BMI. [facility] CHEM PANEL Bili Total 0.3 mg/dL 0.2 - 1.3 12/13/2016 [facility] CHEM PANEL Alk Phos 64 unit/L 39 - 136 12/13/2016 [facility] CHEM PANEL AST 7 unit/L 0 - 37 12/13/2016 [facility] CHEM PANEL Creatinine Lvl 0.37 mg/dL 0.50 - 1.40 12/13/2016 [facility] CHEM PANEL BUN 6 mg/dL 7 - 22 12/13/2016 [facility]M PANEL Glucose Lvl 94 mg/dL 70 - 99 12/13/2016 [facility] PAN[facility] Albumin Lvl 2.1 g/dL 3.5 - 5.0 12/13/2016 [facility] Globulin 3.7 g/dL 2.7 - 4.2 12/13/2016 [facility] A/G Ratio 0.6 0.7 - 1.6 12/13/2016 [facility] CHEM PANEL ALT 10 unit/L 0 - 65 12/13/2016 [facility] CHEM PANEL Total Protein 5.8 g/dL 6.4 - 8.4 12/13/2016 [facility] CHEM PANEL CO2 43 meq/L 24 - 32 12/13/2016 Result Comment: Critical Result(s) called to rolando velasquez at 12/13/2016 11:41 by sherry. Read back OK. [facility] CHEM PANEL AGAP 8.1 meq/L 10.0 - 20.0 12/13/2016 [facility] PANEL Calcium Lvl 8.2 mg/dL 8.5 - 10.5 12/13/2016 [facility] CHEM PANEL B/C Ratio 16 6 - 25 12/13/2016 [facility] CHEM PANEL Chloride Lvl 92 meq/L 95 - 109 12/13/2016 [facility] CHEM PANEL Potassium Lvl 4.1 meq/L 3.5 - 5.1 12/13/2016 [facility]M PANEL Sodium Lvl 139 meq/L 135 - 145 12/13/2016 [facility] URINE AND STOOL UA Color Ltyellow 12/13/2016 [facility] URINE AND STOOL UA Urobilinogen <=1.0 mg/dL 0.1 - 1.0 12/13/2016 [facility] URINE AND STOOL UA Sq Epi None Seen 12/13/2016 [facility] URINE AND STOOL UA Bacteria Occasional /HPF None Seen /HPF 12/13/2016 [facility] URINE AND STOOL UA WBC null 0 - 5 12/13/2016 [facility] URINE AND STOOL UA pH 7.0 5.0 - 8.0 12/13/2016 [facility] URINE AND STOOL UA Spec Grav 1.004 <=1.030 12/13/2016 [facility] URINE AND STOOL UA Turbidity Clear (12/13/16 10:20 AM) Clear 12/13/2016 [facility] URINE AND STOOL UA Glucose Negative mg/dL Negative mg/dL 12/13/2016 [facility] URINE AND STOOL UA Protein Negative mg/dL Negative mg/dL 12/13/2016 [facility] URINE AND STOOL UA Bili Negative *NA* (12/13/16 10:20 AM) Negative 12/13/2016 [facility] URINE AND STOOL UA Ketones Negative mg/dL Negative mg/dL 12/13/2016 [facility] URINE AND STOOL UA Leuk Est Negative (12/13/16 10:20 AM) Negative 12/13/2016 [facility] URINE AND STOOL UA Nitrite Negative (12/13/16 10:20 AM) Negative 12/13/2016 [facility] URINE AND STOOL UA Blood Negative (12/13/16 10:20 AM) Negative 12/13/2016 [facility] Carotid artery Doppler bilat US Carotid artery Doppler bilat US Carotid artery Doppler bilat US CLINICAL HISTORY: Transient cerebral ischem. COMPARISON: 12/13/2016 TECHNIQUE: Elam scale, color Doppler and spectral Doppler of the cervical carotid arteries was performed. Static images are submitted for review. FINDINGS: RIGHT: There is no significant intimal thickening or plaque visualized in right CCA. Visualized portion of right ECA is patent. Minimal scattered plaque is noted at the right carotid bulb. Visualized portion of the right ICA is patent without significant plaque. Right ICA PSV 141 cm/sec. Right CCA PSV 125 cm/sec. Right ICA/CCA Ratio 1.1 LEFT: There is no significant intimal thickening or plaque visualized in left CCA. Visualized portion of left ECA is patent. No significant plaque is visualized in the left carotid bulb. Visualized portion of the left ICA is patent without significant plaque. Left ICA PSV 129 cm/sec. Left CCA PSV 130 cm/sec. Left ICA/CCA Ratio 1.0 Antegrade flow is noted in both vertebral arteries. IMPRESSION: No sonographic evidence for hemodynamically significant stenosis. CONSENSUS PANEL Doppler US criteria for diagnosis of ICA stenosis: Stenosis (%) ICA PSV (cm/sec) ICA EDV(cm/sec) ICA/CCA ratio <50 % <125 <40 <2.0 50-69 % 125-230 40-100 2.0-4.0 >70% but less than >230 >100 >4.0 near occlusion NOTE: Any reported ICA stenoses indirectly reference the distal internal carotid diameter as the denominator for stenosis measurement utilizing Consensus Panel Criteria. SL: [id number] 12/13/2016 - - Read by: Pradip Geiger MD Dictated Date/time: 12/13/16 16:45 Electronically Signed by: Pradip Geiger MD 12/13/16 16:47 FINAL REPORT [facility] Brain wo contrast CT Brain wo contrast CT Addendum: I have reviewed this examination and concur with the interpretation. Brain wo contrast CT CLINICAL HISTORY: Altered level of consciousness/ pt from snf, was not acting herself this am confused/now feels better; CT DLP dose 859.11 mGycm COMPARISON: 10/06/2010 TECHNIQUE: Contiguous transaxial images of the brain were performed without administration of IV contrast. Reformations were performed in sagittal and coronal projections. FINDINGS: BRAIN PARENCHYMA: There is no evidence for space-occupying lesions, mass effect or vasogenic edema. No evidence for parenchymal bleed, extra-axial collections or midline shift. Decreased attenuation in the periventricular white matter is likely related to chronic ischemic change from small vessel disease. No acute infarct is noted. Intracranial vascular calcifications are noted. VENTRICLES: There is dilation of ventricles and subarachnoid spaces but not out of proportion to the underlying cerebral atrophy. BRAINSTEM, SELLA AND ORBITS: No evidence for Chiari malformation. No space- occupying lesion is visualized in the sella. Visualized portion of the orbits are unremarkable. CALVARIUM AND SKULL BASE: No displaced bony fractures or other significant bony abnormality is visualized. MASTOIDS AND PARANASAL SINUSES: The visualized paranasal sinuses are clear. Mastoid air cells are clear bilaterally. IMPRESSION: No acute brain abnormality is noted. Further evaluation may be obtained with MRI of brain as clinically indicated. SL: [id number] 12/13/2016 - - Read by: Kim Madden MD Dictated Date/time: 12/13/16 12:20 Electronically Signed by: Kim Madden MD 12/13/16 12:21 FINAL REPORT - - Read by: Pradip Geiger MD Dictated Date/time: 12/13/16 12:13 Electronically Signed by: Pradip Geiger MD 12/13/16 12:17 FINAL REPORT [facility] Chest 1view DX Chest 1view DX Study: Chest 1view DX Clinical Indication: Dizziness Comparison: Chest x-ray from 09/27/2013 FINDINGS: Median sternotomy wires are again noted. Cardiac silhouette is enlarged. Central vascular congestion with mild pulmonary edema and small pleural effusions are noted. There is no pneumothorax. The osseous structures are unremarkable. IMPRESSION: Congestive heart failure SL: [id number] 12/13/2016 - - Read by: Joel Mijares MD Dictated Date/time: 12/13/16 10:55 Electronically Signed by: Joel Mijares MD 12/13/16 10:55 FINAL REPORT [facility] Digital Mammo Screening Horacio MA Digital Mammo Screening Horacio MA - DIGITAL MAMMO SCREENING HORACIO MA BILATERAL DIGITAL SCREENING MAMMOGRAM WITH CAD: 11/03/2013 CLINICAL: Screening. Current study was evaluated with a Computer Aided Detection (CAD) system. Comparison is made to exams dated: 08/30/2008 mammogram, 09/15/2009 mammogram, 09/15/2010 mammogram, 09/22/2011 mammogram and 09/22/2012 mammogram. There are scattered fibroglandular densities in both breasts. No significant masses, calcifications, or other findings are seen in either breast. There has been no significant interval change. IMPRESSION: NEGATIVE There is no mammographic evidence of malignancy. A screening mammogram in one year is recommended. Dr. Rimma Dodson D.O. ht/penrad:11/12/2013 13:24:38 Inkjet Operator: Silvia CADENA(R)(M)[facility] This exam was dictated and interpreted by [id number] for GAMAL Carbone Fabiano. letter sent: Normal exam Mammogram BI-RADS: 1 Negative 11/03/2013 - - Read by: Rimma Dodson Dictated Date/time: 11/12/13 13:24 Electronically Signed by: Rimma Dodson DO 11/12/13 13:24 FINAL REPORT TAYOIsh Vázqueza Chest 2 views Chest 2 views EXAMINATION: Chest x-ray 2 views COMPARISON: May 21, 2013 COMMENTS: Sternotomy changes are again noted. The heart and pulmonary vasculature are within normal limits. Left upper lung punctate calcified granuloma is again noted. No focal consolidation or significant pleural fluid collection is appreciated. No suspicious osseous pathology. IMPRESSION: NO ACUTE CARDIOPULMONARY ABNORMALITY. 09/27/2013 - - Read by: London Johnson Dictated Date/time: 09/27/13 14:38 Electronically Signed by: London Johnson MD 09/27/13 14:46 FINAL REPORT TAYOIsh SuarezLynn Chest 2 views Chest 2 views CHEST PA AND LATERAL Clinical history: COPD. Comparison: 10/06/2010 Findings: Status post medial sternotomy The lungs are expanded and no infiltrate, mass or pleural effusion seen. Subsegmental atelectasis in both bases and at the lingula. The heart is borderline enlarged. IMPRESSION: There is no evidence for active pulmonary disease. Borderline cardiomegaly, stable. 05/21/2013 - - Read by: Wero Mckinnon Dictated Date/time: 05/21/13 12:07 Electronically Signed by: Wero Mckinnon MD 05/21/13 12:12 FINAL REPORT JUDY Suarezadena Bone Density-Dual Energy Absorptionmetry Bone Density-Dual Energy Absorptionmetry - Bone Density-Dual Energy Absorptionmetry BONE DENSITY EVALUATION: 04/09/2013 CLINICAL DATA: Post menopausal. RISK FACTORS: . FINDINGS: Bone density evaluation was performed 04/09/2013 on the AP L1-L4 region of spine using Lunar Dual Energy X-Ray Absorptiometry. The BMD average for the exam is 0.882 g/cm2. The T-score is -2.50 and the Z-score is -1.70. These values indicate 82.0% for age-matched controls. This matches the World Health Organization's criteria for osteoporosis and places the patient at a high risk for fracture. An additional bone density evaluation was performed 04/09/2013 on the right femur neck using Lunar Dual Energy X-Ray Absorptiometry. The BMD average for the exam is 0.733 g/cm2. The T-score is -2.20 and the Z-score is -1.00. These values indicate 84.0% for age-matched controls. This matches the World Health Organization's criteria for osteopenia and places the patient at a medium risk for fracture. An additional bone density evaluation was performed 04/09/2013 on the right hip using Lunar Dual Energy X-Ray Absorptiometry. The BMD average for the exam is 0.778 g/cm2. The T-score is -1.80 and the Z-score is -0.90. These values indicate 87.0% for age-matched controls. This matches the World Health Organization's criteria for osteopenia and places the patient at a medium risk for fracture. An additional bone density evaluation was performed 04/09/2013 on the left femur neck using Lunar Dual Energy X-Ray Absorptiometry. The BMD average for the exam is 0.607 g/cm2. The T-score is -3.10 and the Z-score is -1.90. These values indicate 69.0% for age-matched controls. This matches the World Health Organization's criteria for osteoporosis and places the patient at a high risk for fracture. An additional bone density evaluation was performed 04/09/2013 on the left hip using Lunar Dual Energy X-Ray Absorptiometry. The BMD average for the exam is 0.728 g/cm2. The T-score is -2.20 and the Z-score is -1.30. These values indicate 81.0% for age-matched controls. This matches the World Health Organization's criteria for osteopenia and places the patient at a medium risk for fracture. IMPRESSION: OSTEOPOROSIS Patient is at high risk for fracture. Aliyah estrada/melissa:04/09/2013 17:13:39 Inkjet Operator: Trey rCockett, [facility] 04/09/2013 - - Read by: Aliyah Wang [facility] Date/time: 04/09/13 17:13 Electronically Signed by: Aliyah Wang MD 04/09/13 17:13 FINAL REPORT GAMAL Sauer Pelvis with Pelvis Transvaginal US Pelvis with Pelvis Transvaginal US EXAM: Pelvic/transvaginal ultrasound HISTORY: 627 COMPARISON: None. FINDINGS: Real-time sonographic evaluation of the pelvis was performed. Transabdominal and transvaginal imaging was performed. Multiple transverse and longitudinal images were obtained. The uterus is normal in echogenicity and size. The uterus measures 8.2 x 3.7 x 4.9 cm. No focal masses are seen in the uterus. The endometrial stripe is normal in echogenicity and thickness measuring 3 mm. The ovaries are not visualized. No adnexal masses are seen. There is no evidence of ovarian torsion. No free fluid is seen. IMPRESSION: 1. Ovaries nonvisualized. Otherwise, normal pelvic ultrasound. 04/09/2013 - - Read by: Urban Mcgowan Dictated Date/time: 04/09/13 14:25 Electronically Signed by: Urban Mcgowan MD 04/09/13 14:26 FINAL REPORT GAMAL Sauer Carotid artery Doppler US Carotid artery Doppler US Bilateral Carotid Artery Duplex HISTORY: Dizziness, confusion; Possible TIA DISCUSSION: Peak systolic right ICA velocity is 77 cm/s with a diastolic velocity of 4 cm/sec. Peak systolic left ICA velocity is 114 cm/sec with a diastolic velocity of 28 cm/s. The ICA to CCA ratios measure 0.83 on the right and 1.0 on the left. Both vertebral arteries show normal antegrade/forward flow. Findings by color duplex scanning demonstrate no significant plaque within the common carotid or internal carotid artery bilaterally. There is no evidence of hemodynamically significant stenosis in the extracranial carotid cerebrovascular circulation. IMPRESSION: 1. No hemodynamically significant stenosis bilaterally of the extracranial carotid arterial system. By peak systolic and end diastolic velocity criteria, there is less than 50% narrowing of the ICA bilaterally. 03/29/2013 - - Read by: Luis Verdugo Dictated Date/time: 03/29/13 14:40 Electronically Signed by: Luis Verdugo MD 03/29/13 14:42 FINAL REPORT GAMAL Sauer Vital Signs Vital Sign Value Date Comments Source Respitory Rate 18 12/17/2016 [facility] Systolic (mm Hg) 127 12/17/2016 [facility] Diastolic (mm Hg) 89 12/17/2016 [facility] Heart Rate 71 12/17/2016 [facility] Temperature Oral (F) 98.5 F 12/17/2016 [facility] Respitory Rate 16 12/17/2016 [facility] Respitory Rate 18 12/17/2016 [facility] Heart Rate 72 12/17/2016 [facility] Temperature Oral (F) 97.2 F 12/17/2016 [facility] Systolic (mm Hg) 129 12/17/2016 [facility] Diastolic (mm Hg) 75 12/17/2016 [facility] Temperature Oral (F) 97.8 F 12/17/2016 [facility] Heart Rate 68 12/17/2016 [facility] Systolic (mm Hg) 108 12/17/2016 [facility] Diastolic (mm Hg) 64 12/17/2016 [facility] Height 162.5 cm 12/14/2016 [facility] BMI Calculated 43.02 12/14/2016 [facility] Weight 113.6 12/14/2016 [facility] Weight 113.636 12/13/2016 [facility] BMI Calculated 43 12/13/2016 [facility] Height 162.56 cm 12/13/2016 [facility] Encounters Location Location Details Encounter Type Encounter Number Reason For Visit Attending Provider ADM Date DC Date Status Source OD [id number] V76.12 - SCREEN MAMMOGRA KIRA CRUMP JR 11/03/2013 11/03/2013 Active JUDY Sauer [facility] Inpatient [id number] Zelaya Lynda 12/13/2016 12/17/2016 [facility] Procedures Procedure Code Date Perfomer Comments Source CABG - Coronary artery bypass graft [id number] [facility]
--- OUTSIDE RECORDS SUMMARY | 2018-12-30 18:10 | XMS REPORT | CCD ---
Author Author Auto Generated Organization [facility] [place] Address Unknown Phone Unavailable Care Team Providers Care Cloth Shrinker Name Role Phone ArdonSesar montoyaGeoff CP Allergies, Adverse Reactions, Alerts Substance Reaction [...]
[2018-12-30] MEDS ORDERED: CEFEPIME 2 GM/NS 0.9% 100 ML 100 ML IV ONE (18:15)
[2018-12-30 18:22] LABS: ABG PH 7.43 (7.31-7.41)
[2018-12-30 18:23] LABS: ABG HCO3 52 mmol/L (23-28); ABG PCO2 79 mmHg (41-51); ABG PO2 52 mmHg (80-105)
[2018-12-30 18:36] LABS: BASOPHILS % 0.2 % (0.0-1.0); EOSINOPHILS # (AUTO) 0.2 (0.0-0.4); EOSINOPHILS % 1.9 % (0.0-6.0); HEMATOCRIT 44.2 % (34.2-44.1); HEMOGLOBIN 13.7 g/dL (12.0-16.0); LYMPHOCYTES # (AUTO) 2.7 (1.0-3.2); LYMPHOCYTES % 31.5 % (18.0-39.1); MEAN CORPUSCULAR HEMOGLOBIN 30.5 pg (28-32); MEAN CORPUSCULAR VOLUME 98.4 fL (81-99); MONOCYTES # (AUTO) 0.7 (0.2-0.8); MONOCYTES % 8.2 % (4.4-11.3); NEUTROPHILS # (AUTO) 4.9 (2.1-6.9); NEUTROPHILS % 57.7 % (38.7-80.0); PLATELET COUNT 348 x10e3/uL (140-360); RED BLOOD COUNT 4.49 x10e6/uL (3.6-5.1); RED CELL DISTRIBUTION WIDTH 12.3 % (11.7-14.4)
--- NOTE | 2018-12-30 18:54 | Diagnostic Imaging Report ---
EXAMINATION: CHEST SINGLE (PORTABLE) COMPARISON: None INDICATION: ^cough sob ^20181230 ^1819 DISCUSSION: Frontal view of the chest obtained at 1827 hours. HEART AND MEDIASTINUM: The heart is mildly enlarged. This could be due to prominent pericardial fat pads. The aorta is ectatic LINES: None. LUNGS: The lungs are diffusely hyperinflated. Right basilar airspace opacity is present. There is a subcentimeter calcified granuloma in the left upper lobe. Pulmonary vascular markings are grossly normal PLEURA: No large effusions. No pneumothorax. BONES AND SOFT TISSUES: Median sternotomy wires are intact. No focal osseous lesions. Round subcentimeter soft tissue calcification in the right supraclavicular space. IMPRESSION: COPD. Right basilar airspace opacity may represent pneumonia or atelectasis. Recommend correlation with PA and lateral chest x-ray when clinically feasible. Cardiomegaly. No vascular congestion. Signed by: Dr. Bonifacio Mckay MD on 12/30/2018 6:50 PM
[2018-12-30 18:57] LABS: INR 0.96; PROTHROMBIN TIME 13.3 seconds (11.9-14.5)
[2018-12-30 18:58] LABS: PARTIAL THROMBOPLASTIN TIME 28.6 seconds (23.8-35.5)
--- NOTE | 2018-12-30 18:59 | NUR ---
purewick placed on patient, awake alert skin w/d resp nonlab, nad noted.
[2018-12-30] MEDS ORDERED: LISINOPRIL5 MG PO (19:07)
[2018-12-30] MEDS ORDERED: ADVAIR 250-501 EACH INH (19:07)
[2018-12-30] MEDS ORDERED: FUROSEMIDE40 MG PO (19:07)
[2018-12-30] MEDS ORDERED: PROAIR HFA INH8.5 GM INH (19:07)
[2018-12-30] MEDS ORDERED: CLOPIDOGREL75 MG PO (19:07)
[2018-12-30] MEDS ORDERED: ASPIR 8181 MG PO (19:07)
[2018-12-30] MEDS ORDERED: OLANZAPINE5 MG PO (19:07)
[2018-12-30] MEDS ORDERED: AMIODARONE HCL200 MG PO (19:07)
[2018-12-30] MEDS ORDERED: CITALOPRAM HBR20 MG PO (19:07)
[2018-12-30] MEDS ORDERED: CRESTOR20 MG PO (19:07)
[2018-12-30] MEDS ORDERED: ELIQUIS PO (19:07)
[2018-12-30] MEDS ORDERED: DETROL LA4 MG PO (19:07)
[2018-12-30 19:09] LABS: ALANINE AMINOTRANSFERASE 11 IU/L (0-55); ALBUMIN 2.8 g/dL (3.5-5.0); ALBUMIN/GLOBULIN RATIO 0.8 (0.8-2.0); ALKALINE PHOSPHATASE 64 IU/L (40-150); ANION GAP 11.8 mmol/L (8-16); BLOOD UREA NITROGEN 9 mg/dL (7-26); BUN/CREATININE RATIO 12 (6-25); CALCIUM 9.6 mg/dL (8.4-10.2); CHLORIDE 87 mmol/L (98-107); CREATINE KINASE 40 IU/L (29-168); CREATININE, SERUM 0.73 mg/dL (0.57-1.11); EST GLOMERULAR FILTRATION RATE > 60 ML/MIN (60-); GLUCOSE 101 mg/dL (74-118); MAGNESIUM 1.9 MG/DL (1.3-2.1); POTASSIUM 3.8 mmol/L (3.5-5.1); SODIUM 141 mmol/L (136-145)
[2018-12-30 19:20] LABS: B-TYPE NATRIURETIC PEPTIDE2 98.4 pg/mL (0-100)
[2018-12-30 19:33] LABS: CARBON DIOXIDE 46 mmol/L (22-29)
--- NOTE | 2018-12-30 19:42 | NUR ---
RT CALLED FOR ABG PUNCTURE ON PT.
--- NOTE | 2018-12-30 20:44 | NUR ---
PT ASKING FOR FOOD AND WATER, DR MORRIS AWARE, PT NPO AT THIS TIME, EXPLAINED TO PT AND FAMILY, PT ASKING HOW LONG WILL SHE BE NPO. EXPLAINED UNTIL RESPIRATORY STATE IMPROVES
[2018-12-30] MEDS ORDERED: CEFTRIAXONE SOD 1 GM VIAL IV SCH (20:45)
[2018-12-30] MEDS ORDERED: AZITHROMYCIN 500MG/NS 250 ML 250 ML IV SCH (20:45)
--- NOTE | 2018-12-30 21:09 | NUR ---
TRANSFER INITIATED TO [facility], SPOKE TO ZACHARY AT TC
--- NOTE | 2018-12-30 21:16 | NUR ---
RECEIVED CALL FROM [facility], NO BEDS AVAILABLE AT [facility]
[2018-12-30 21:26] LABS: CLARITY,URINE CLEAR (CLEAR); COLOR,URINE YELLOW (YELLOW)
[2018-12-30 21:27] LABS: BILIRUBIN,URINE NEGATIVE (NEGATIVE); KETONES,URINE NEGATIVE (NEGATIVE); LEUKOCYTE ESTERASE ,URINE TRACE (NEGATIVE); NITRITE,URINE NEGATIVE (NEGATIVE); PROTEIN,URINE DIPSTICK NEGATIVE (NEGATIVE); URINE UROBILINOGEN 0.2 mg/dL (0.2 - 1)
[2018-12-30 21:28] LABS: BACTERIA,URINE FEW /HPF; WBC,URINE (MAN) 0-5 /HPF (0-5)
[2018-12-30 21:29] LABS: EPITHELIAL CELLS,URINE MODERATE /LPF
--- NOTE | 2018-12-30 22:12 | NUR ---
TRANSFER INITIATED TO [facility], SPOKE TO FARTUN RICE [facility]
--- OUTSIDE RECORDS SUMMARY | 2018-12-30 22:31 | XMS REPORT ---
[facility] Address Unknown Phone Unavailable Care Team Providers Care Lunch Counter Manager Name Role Phone Raysa BANDA Unavailable Unavailable Problems This patient has no known problems. Allergies, Adverse Reactions, Alerts This patient has no known allergies or adverse reactions. Medications This patient has no known medications. Results Test Description Test Time Test Comments Text Results Atomic Results Result Comments CHEST SINGLE (PORTABLE) 2018-12-30 18:48:00 [facility] [address] [place], [place] [id number] Patient Name: IRVIN QUINN I MR #: [id number] : 1940 Age/Sex: 78/F Req #: [id number] Adm Physician: Ordered by: ADRIAN BANDA MD Report #: [id number] Location: ER Room/Bed: Procedure: [id number] DX/CHEST SINGLE (PORTABLE) Exam Date: 12/30/18 Exam Time: 1819 REPORT STATUS: Signed EXAMINATION: CHEST SINGLE (PORTABLE) COMP ARISON: None INDICATION: cough sob 20181230 DISCUSSION: Frontal view of the chest obtained at 1827 hours. HEART AND MEDIASTINUM: The heart is mildly enlarged. This could be due to prominent pericardial fat pads. The aorta is ectatic LINES: None. LUNGS: The lungs are diffusely hyperinflated. Right basilar airspace opacity is present. There is a subcentimeter calcified granuloma in the left upper lobe. Pulmonary vascular markings are grossly normal PLEURA: No large effusions. No pneumothorax. BONES AND SOFT TISSUES: Median sternotomy wires are intact. No focal osseous lesions. Round subcentimeter soft tissue calcification in the right supraclavicular space. IMPRESSION: COPD. Right basilar airspace opacity may represent pneumonia or atelectasis. Recommend correlation with PA and lateral chest x-ray when clinically feasible. Cardiomegaly. No vascular congestion. Signed by: Dr. Lindsey Mckay MD on 12/30/2018 6:50 PM Dictated By: LINDSEY MCKAY MD 49 Transcribed By: PADMA on 12/30/181849 COPY TO: ADRIAN BANDA MD
[2018-12-31 00:07] LABS: ABG PH 7.47 (7.31-7.41)
[2018-12-31 00:08] LABS: ABG PCO2 74 mmHg (41-51); ABG PO2 65 mmHg (80-105)
[2018-12-31 00:09] LABS: ABG HCO3 54 mmol/L (23-28)
--- NOTE | 2018-12-31 00:52 | NUR ---
report given to [facility] crew and called to HUSSAIN Pedraza at [facility]
--- NOTE | 2018-12-31 00:53 | NUR ---
pt awake alert skin w/d resp nonlab, nad noted. tolerating bipap
--- NOTE | 2018-12-31 21:00 | History and Physical ---
HISTORY OF PRESENT ILLNESS: The patient presented to the emergency room with shortness of breath, cough, and wheezing. She had symptoms progressive for 4-5 days. The patient has a long history of COPD and has had multiple visits for this difficulty History includes hyperlipoproteinemia as well as overactive bladder and chronic anticoagulation. The patient is unaware of indication, but states she has had multiple arrhythmias. The patient is unaware of her allergy history. ER home med list including albuterol, Cordarone, citalopram for mood disorder, chronic psychosis and depression. Anticoagulants listed as home meds include aspirin, Plavix, and Eliquis. The patient also takes rosuvastatin and olanzapine as well as lisinopril and Lasix per home med list. Was advised Dr. Malave would admit the patient to my service. The patient required ventilatory assistance with BiPAP in the emergency room. The patient is not able to relate significant history at this time. Denies headache or visual change. No significant chest pain. Denies GI symptoms. She is sedentary and uses a wheelchair. She is very poorly ambulatory. The patient is not aware of past surgical history or family history at this time and is a poor historian. We will review the patient's records when available. White count 8.53 with hemoglobin 13.7 and platelet count 348,000. INR 0.96. Urinalysis clear. Flu A and B negative. CO2 on chemistry profile 46. Albumin 2.8. Cultures of the blood and urine were requested. Chest x-ray with cardiomegaly, no vascular congestion. Right basilar opacity, "pneumonia or atelectasis" per Dr. Valdovinos, radiologist here. PHYSICAL EXAMINATION: VITAL SIGNS: Temperature is 98.8, pulse 86, respiratory rate 18, and BP 136/64. SKIN: No pallor or icterus. THROAT: Clear. GENERAL: Morbidly obese with tachypnea and upper airway congestion. Generalized reduction in breath sounds. CARDIAC: Sounds distant. ABDOMEN: Obese. Soft. Bowel sounds normal. EXTREMITIES: With trace edema. Peripheral pulses reduced. DTRs depressed. Strength poor. NEURO: Sensorium dull, baseline. IMPRESSION AND PLAN: Chronic obstructive pulmonary disease with acute exacerbation and pulmonary infiltrate, suspect pneumonia per Radiology report. History of multiple cardiac arrhythmias and chronic anticoagulation. Chronic severe depression. Hyperlipoproteinemia. I have asked Pulmonary Medicine consultants to follow also. My plans are to followup data. Empiric antibiotics were ordered by Dr. Malave, ER physician on the patient's arrival, see notes for azithromycin and ceftriaxone. The patient was also given 1 g of vancomycin in the emergency room by ER MD. The patient's history is limited. Echo pending. MD SANGITA Ambrosio/MODL /[id number] MTDD
== END 2018-12-31 00:59 | disposition short-term general hospital (02) ==
LOC: ER 18:06 → ERHOLD 22:27
PROVIDERS: ADMIT Internal Medicine; ATTEND Internal Medicine
DX: J44.1 Chronic obstructive pulmonary disease with (acute) exacerbation (principal); E78.5 Hyperlipidemia, unspecified; J18.9 Pneumonia, unspecified organism; J44.0 Chronic obstructive pulmonary disease with (acute) lower respiratory infection; F32.9 Major depressive disorder, single episode, unspecified
CPT/HCPCS: 36415 ×2; 36600; 71045; 80053; 81001; 82550; 82553; 82805 ×2; 83605; 83735; 83880; 84484; 85025; 85610; 85730; 87040; 87086; 87400; 93005; 94660 ×2; 99285; G0378 ×2; J3370

== ENCOUNTER 2021-04-25 11:53 | Emergency (ER) | payer MEDICARE, OTHER ==
[~2021-04-25] VITALS: Ht 162.6 cm; Wt 99.8 kg
[~2021-04-25 11:53] MED LIST: ADVAIR 250-501 EACH INH; AMIODARONE HCL200 MG PO; ASPIR 8181 MG PO; CITALOPRAM HBR20 MG PO; CLOPIDOGREL75 MG PO; CRESTOR20 MG PO; DETROL LA4 MG PO; ELIQUIS PO; FUROSEMIDE40 MG PO; LISINOPRIL5 MG PO; OLANZAPINE5 MG PO; PROAIR HFA INH8.5 GM INH
== END 2021-04-25 12:45 | disposition home or self-care (01) ==
LOC: ER 12:43
DX: Z76.0 Encounter for issue of repeat prescription (principal); I11.0 Hypertensive heart disease with heart failure; I50.9 Heart failure, unspecified; E78.5 Hyperlipidemia, unspecified; I25.10 Atherosclerotic heart disease of native coronary artery without angina pectoris; J44.9 Chronic obstructive pulmonary disease, unspecified; Z95.1 Presence of aortocoronary bypass graft
CPT/HCPCS: 99282